=== PATIENT | female | born 1990 | race Hispanic/Latino ===

== ENCOUNTER 2019-09-18 13:16 | Inpatient (IN) | payer SELFPAY ==
[2019-09-18] MEDS ORDERED: cefTRIAXone\\ROCEPHIN 2 GM VIAL ONE ×2 (13:55→14:04)
[2019-09-18 14:04] LABS: #Lymphocytes 1.4 thou/uL (1.20-3.40); #Monocytes 1.1 thou/uL (0.11-0.59); #Neutrophils 6.7 thou/uL (1.40-6.50); %Basophils 0.2 % (0.0-1.0); %Eosinophils 0.1 % (0.0-10.0); %Lymphocytes 15.2 % (21.0-51.0); %Neutrophils 72.5 % (42.0-75.0); Hemoglobin 11.4 g/dL (12.0-16.0); Mean Corpuscular HGB CONC 33.9 g/dL (32.0-36.0); Mean Corpuscular Hemoglobin 28.8 pg (27.0-31.0); Mean Platelet Volume 9.3 fL (7.4-10.4); Platelet Count 199 thou/uL (130-400); RBC Distribution Width 16.5 % (11.5-14.5); Red Blood Cell (RBC) Count 3.95 mill/uL (4.20-5.40); White Blood Cell (WBC) Count 9.3 thou/uL (4.8-10.8)
[2019-09-18 14:14] LABS: BHCG - Serum Negative (NEGATIVE); Pregs Control Background? CLEAR/WHITE (CLR/WHITE); Pregs Control Bar Appear? YES (CONTROL BAR)
[2019-09-18 14:27] LABS: ALT (SGPT) 50 U/L (8-55); AST (SGOT) 34 U/L (5-34); Albumin 3.9 g/dL (3.5-5.0); Alkaline Phosphatase 114 U/L (40-110); Anion Gap 12 mmol/L (10-20); BUN (Urea Nitrogen) 6 mg/dL (7.0-18.7); Bilirubin, Total 0.7 mg/dL (0.2-1.2); Calc. Creatinine Clearance 0 mL/min (70-130); Calcium 8.6 mg/dL (7.8-10.44); Carbon Dioxide 23 mmol/L (22-29); Chloride 102 mmol/L (98-107); Estimated GFR-MDRD Greater than 90; Globulin 3.9 g/dL (2.4-3.5); Glucose 94 mg/dL (70-105); Lipase 15 U/L (8-78); Potassium 3.7 mmol/L (3.5-5.1); Protein, Total 7.8 g/dL (6.0-8.3); Sodium 133 mmol/L (136-145)
[2019-09-18] MEDS ORDERED: Succinylcholine Chloride 20 MG/ML 10 ml SYRINGE FS ONE (14:49)
[2019-09-18] MEDS ORDERED: PROPOFOL 200 MG/20 ML VIAL ONE (14:49)
[2019-09-18] MEDS ORDERED: Ondansetron PF 4 MG/2 ML Vial ONE ×2 (14:49→19:07)
[2019-09-18] MEDS ORDERED: Dexamethasone 20 MG/5 ML VIAL ONE (14:49)
[2019-09-18] MEDS ORDERED: PHENYLEPHRINE-NS 100 MCG/ML 10 ML SYRINGE ONE (14:49)
[2019-09-18] MEDS ORDERED: Lidocaine 1% PF 5 ML VIAL ONE (14:49)
[2019-09-18 14:57] LABS: Bilirubin Negative (Negative); Blood, Urine Negative (Negative); Clarity Turbid (Clear); Glucose, Urine (Dipstick) 30 mg/dL (Negative); Leukocyte 500 Leu/uL (Negative); Nitrite Negative (Negative); Protein, Urine (Dipstick) 50 mg/dL (Neg-Trace); WBC/HPF 21-50 HPF (0-3)
[2019-09-18 15:08] LABS: Bacteria/HPF 2+ HPF (None Seen); Trichomonas/HPF 1+ HPF (None Seen)
[2019-09-18] MEDS ORDERED: Iopamidol-370 76% 500 ML 1 ML ONE (15:27)
[2019-09-18] MEDS ORDERED: Ketorolac Tromethamine 30 MG/ML VIAL ONE ×2 (15:33→20:06)
[2019-09-18] MEDS ORDERED: metroNIDAZOLE 250 MG TAB ONE ×2 (16:11→16:33)
--- NOTE | 2019-09-18 16:30 | CT ---
CT abdomen and pelvis with IV contrast HISTORY: Abdomen pain. Fever. FINDINGS: Lung bases are clear. The liver, spleen, kidneys, adrenal glands, and pancreas have a litzy l CT appearance. Tiny hyperdensity at the inferior pole of the right kidney correlate with contrast within a vessel rather than a stone. Reactive appearing lymph nodes throughout the retroperitoneum an d mesentery. Urinary bladder is unremarkable. Appendix is upper limits of normal in caliber is 0.6 cm. Some internal fluid. Minimal hyperenhancement of the wall and adjacent fat stranding. IMPRESSION: Early inflammatory appearance of the appendix. Consider early acute appendicitis. No evid ence of complication.
[2019-09-18] MEDS ORDERED: Piperacillin/Tazobactam 3.375 GM VIAL ONE (17:27)
[2019-09-18] MEDS ORDERED: Bupivacaine PF 0.5% 30 ML VIAL ONE (17:28)
[2019-09-18] MEDS ORDERED: Lidocaine 1% w/Epinephrine 1:100K 20 ML VIAL ONE (17:28)
[2019-09-18] MEDS ORDERED: Fentanyl 100 MCG/2 ML VIAL ONE ×2 (17:41→19:19)
--- NOTE | 2019-09-18 17:48 | HP ---
HISTORY OF PRESENT ILLNESS: Funmi Farris is a 29-year-old female, has had 3 days of general body aches, left hip pain, lower back pain, dysuria, abdominal pain, nausea, vomiting, fever. She presents to the emergency room, evaluated, and noted to have a white count of 9 and hemoglobin of 11, unremarkable comprehensive metabolic profile. Urinalysis suggestive of UTI with 2+ bacteria, 1+ Trichomonas, specific gravity 1.023, turbid urine, nitrite negative. She underwent a CAT scan of the abdomen and pelvis evaluated for abdominal complaints, noted to have changes consistent with early appendicitis. She is noted to be tender in right lower quadrant. ALLERGIES: NONE. TOBACCO: None. ALCOHOL: Rarely. MEDICATIONS: None routinely. PAST SURGICAL HISTORY: Noncontributory. PAST MEDICAL HISTORY: Noncontributory. SOCIAL HISTORY: Patient has 4 children. 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 PHYSICAL EXAMINATION: VITAL SIGNS: Blood pressure 120/70, heart rate 68, respiratory rate 18. HEAD EARS, EYES, NOSE AND THROAT: Unremarkable. LUNGS: Clear to auscultation. CARDIAC: Regular rate and rhythm without murmur or gallop. ABDOMEN: Soft. Tenderness in the lower abdomen with mild guarding. EXTREMITIES: Unremarkable. ASSESSMENT AND PLAN: 1. Appendicitis. We recommend laparoscopic video appendectomy. Risks of infection, bleeding, reoperation explained and she consents. 2. Flu-like symptoms. Hydrate. 3. Dehydration. 4. Possible urinary tract infection. Job ID: [id number]
[2019-09-18] MEDS ORDERED: Meperidine HCl/PF 25 MG/ML VIAL SLOW IVP PRN (18:02)
[2019-09-18] MEDS ORDERED: Promethazine HCl 25 MG/ML VIAL SLOW IVP PRN (18:02)
[2019-09-18] MEDS ORDERED: Ondansetron HCl/PF 4 MG/2 ML Vial IVP PRN (18:02)
[2019-09-18] MEDS ORDERED: HYDROmorphone 2 MG/ML VIAL SLOW IVP PRN (18:02)
[2019-09-18] MEDS ORDERED: Morphine Sulfate 2 MG/ML SYRINGE SLOW IVP PRN (18:02)
[2019-09-18] MEDS ORDERED: Ketorolac Tromethamine 30 MG/ML VIAL IVP PRN (18:02)
[2019-09-18] MEDS ORDERED: PACU-Morphine 4MG/ML VIAL SLOW IVP PRN (18:02)
[2019-09-18] MEDS ORDERED: Promethazine HCl 25 MG/ML VIAL IM PRN (18:02)
[2019-09-18] MEDS ORDERED: Ondansetron ODT 4 MG TAB PO PRN (18:33)
[2019-09-18] MEDS ORDERED: Ondansetron PF 4 MG/2 ML Vial IVP PRN (18:33)
[2019-09-18] MEDS ORDERED: hydrALAZINE 20 MG/ML VIAL SLOW IVP PRN (18:33)
[2019-09-18] MEDS ORDERED: Morphine 4 MG/ML VIAL SLOW IVP PRN (18:33)
[2019-09-18] MEDS ORDERED: Morphine 2 MG/ML SYRINGE SLOW IVP PRN (18:33)
[2019-09-18] MEDS ORDERED: traMADol HCl 50 MG TAB PO PRN (18:35)
[2019-09-18] MEDS ORDERED: SUGAMMADEX SODIUM 200 MG/2 ML VIAL ONE (18:51)
[2019-09-18] MEDS ORDERED: Promethazine HCl 25 MG/ML VIAL ONE (19:44)
[2019-09-18] MEDS: traMADol HCl 50 MG TAB PO PRN (21:35)
[2019-09-18] MEDS: Famotidine 20 MG TAB PO SCH (21:35)
[2019-09-18] MEDS: Acetaminophen 500 MG TAB PO PRN (21:36)
[2019-09-18] MEDS: metroNIDAZOLE 500 MG TAB PO SCH (21:36)
[2019-09-18] MEDS: Ibuprofen 600 MG TAB PO PRN (21:36)
[2019-09-18] MEDS: Enoxaparin Sodium 40 MG/0.4 ML SYRINGE SC SCH (21:36)
[2019-09-18] MEDS: Sodium Chloride 0.9% 1,000 ML IV SCH (21:39)
[2019-09-18 22:39] VITALS: BMI 32.7
--- NOTE | 2019-09-19 01:09 | OP ---
DATE OF PROCEDURE: 09/18/2019 PREOPERATIVE DIAGNOSES: Acute appendicitis, flu-like symptoms, urinary tract infection, CAT scan states appendicitis. POSTOPERATIVE DIAGNOSIS: Normal appendix. PROCEDURE PERFORMED: Laparoscopic video appendectomy, unremarkable. ANESTHESIA: General, local 0.5% Marcaine 30 mL mixed with 1% Xylocaine with epinephrine 20 mL. DESCRIPTION OF PROCEDURE: The patient was taken to the operating room where under general anesthesia, abdomen was prepared with ChloraPrep and draped in routine fashion. A An catheter was placed at the beginning of the procedure and removed at the end. Local anesthetic was infiltrated into the skin and subcutaneous tissue about the operative sites. Infraumbilical incision was made. Pneumoperitoneum to 15 mmHg was obtained. A Veress needle, replaced with 5 port laparoscope inserted. Right lateral subcostal incision was made and a 5 port placed. Suprapubic incision was made and a 12 port placed. Appendix appeared to be normal. Mesoappendix was taken down with the LigaSure. Stump of the appendix divided with Endo-GRISELDA blue load stapler. Stapled cecal stump was hemostatic and secured. The appendix was removed and submitted to Pathology. Good hemostasis was ensured. Irrigant and pneumoperitoneum evacuated. Suprapubic fascia was approximated with 0 Vicryl. All skin incisions were approximated with interrupted subdermal 4-0 Monocryl and [place] glue applied. Job ID: [id number]
[2019-09-19] MEDS: Sodium Chloride 0.9% 1,000 ML IV SCH ×3 (05:45→11:41)
[2019-09-19] MEDS: traMADol HCl 50 MG TAB PO PRN ×2 (05:53→15:49)
[2019-09-19 06:00] LABS: #Lymphocytes 0.6 thou/uL (1.20-3.40); #Monocytes 0.4 thou/uL (0.11-0.59); #Neutrophils 7.5 thou/uL (1.40-6.50); %Eosinophils 0.1 % (0.0-10.0); %Monocytes 4.3 % (0.0-10.0); %Neutrophils 88.6 % (42.0-75.0); Hemoglobin 10.6 g/dL (12.0-16.0); Mean Corpuscular HGB CONC 31.9 g/dL (32.0-36.0); Mean Corpuscular Hemoglobin 27.7 pg (27.0-31.0); Mean Platelet Volume 9.5 fL (7.4-10.4); Platelet Count 171 thou/uL (130-400); RBC Distribution Width 16.4 % (11.5-14.5); Red Blood Cell (RBC) Count 3.82 mill/uL (4.20-5.40); White Blood Cell (WBC) Count 8.5 thou/uL (4.8-10.8)
[2019-09-19 06:25] LABS: Anion Gap 11 mmol/L (10-20); BUN (Urea Nitrogen) 5 mg/dL (7.0-18.7); Calc. Creatinine Clearance 205 mL/min (70-130); Calcium 8.1 mg/dL (7.8-10.44); Carbon Dioxide 21 mmol/L (22-29); Chloride 110 mmol/L (98-107); Estimated GFR-MDRD Greater than 90; Glucose 121 mg/dL (70-105); Potassium 4.2 mmol/L (3.5-5.1); Sodium 138 mmol/L (136-145)
[2019-09-19] MEDS ORDERED: FLU VACC QS2019-20(6MOS UP)/PF 60 MCG/0.5 ML SYRINGE IM ONE (09:00)
[2019-09-19] MEDS: Famotidine 20 MG TAB PO SCH ×2 (09:25→21:22)
[2019-09-19] MEDS: metroNIDAZOLE 500 MG TAB PO SCH ×3 (09:25→21:22)
[2019-09-19] MEDS: Acetaminophen 500 MG TAB PO PRN ×2 (11:40→21:22)
[2019-09-19] MEDS: Ibuprofen 600 MG TAB PO PRN ×2 (15:49→21:22)
--- NOTE | 2019-09-19 17:05 | PRG ---
DATE OF SERVICE: SUBJECTIVE: Funmi Farris is one day status post laparoscopic appendectomy. The findings at surgery appeared to be that of a normal appendix despite CAT scan showing evidence of inflammation and fluid. She has been afebrile at 98 degrees, heart rate 76, and blood pressure 94/60. White count 8 and hemoglobin 10. Basic metabolic profile normal. Urine cultures negative, although did grow Trichomonas. The patient has refused to cooperate with walking team, 3 efforts today. She does not want to get out of bed. She has made one effort to walk to the bathroom, but felt dizzy. She has been hydrated overnight and appears to be adequately hydrated. OBJECTIVE: LUNGS: Clear to auscultation. CARDIAC: Regular rate and rhythm without murmur or gallop. ABDOMEN: Postoperative tenderness, otherwise nontender. Trocar sites look good. Wounds okay. While visiting the patient, I encouraged her that she should be up in the chair and walking. While in the room, I asked her if I could help her sit up on the side of the bed, she agreed. I removed her SCD connections and then proceeded to move her side of the bed holding her hand, helping her raise forward. Her became irate. He accused me of hurting his . The then was upset that we had taken out a normal appendix and his was still hurting. Her then accused me of treating them poorly because they did not have insurance. I told him I did not know their insurance status. He then accused me of treating them different because they were black and said that he would bring a white person in here to deal with me. I then told the patient I would have to return later to talk to him after he calmed down. I left the room and then the patient's nurse told me that the patient and her decided they wanted to go home. I returned to the room again and discussed with him the patient's presentation in the emergency room, how the emergency room doctor had seen her, how her symptoms were atypical for appendicitis yet the CAT scan suggested appendicitis and she underwent the operation with apparent normal-looking appendix. I told him about her Trichomonas in the bladder and that her urinary culture was otherwise negative, but yet they would both need to be treated with Flagyl for 2 weeks. I have written a prescription for both of them. I then gave him the option of staying in the hospital or going home, stating that there is nothing we can do to treat her viral illness to make it resolve quicker and that would pass with time. I have told him that we could keep her in the hospital another day. He then wanted to see if they could work toward getting her pain under better control and discuss with her nurse the pain control efforts. We will try Tylenol and Advil together, use tramadol as necessary, and use Tylenol No. 3 and hydrocodone only if necessary. The patient and her are agreeable and await their decision later today, otherwise see them tomorrow. Hopefully, she will be ready and feeling better for discharge tomorrow. Job ID: [id number]
[2019-09-19] MEDS: Enoxaparin Sodium 40 MG/0.4 ML SYRINGE SC SCH (21:22)
[2019-09-20] MEDS: traMADol HCl 50 MG TAB PO PRN (06:07)
[2019-09-20] MEDS: Acetaminophen 500 MG TAB PO PRN (06:08)
[2019-09-20] MEDS: metroNIDAZOLE 500 MG TAB PO SCH ×2 (09:06→14:16)
[2019-09-20] MEDS: Famotidine 20 MG TAB PO SCH (09:06)
[2019-09-20 11:08] VITALS: BP 106/61; TEMP 97.9
[2019-09-20] MEDS ORDERED: Acetaminophen/Codeine 30-300mg Tablet PO PRN ×2 (13:37)
[2019-09-20 14:09] LABS: Chlamydia by PCR DETECTED (NotDetected); GC by PCR Not Detected (NotDetected)
--- NOTE | 2019-09-20 14:40 | PRG ---
DATE OF SERVICE: 09/20/2019 SUBJECTIVE: Brittani Farris feels much better. She still has some lower back pain, left hip pain. She states she has had low back pain in the past. She has been treated for muscle spasm in the past. She is tolerating her diet. Her abdomen is without complaint. She complains of some pain in the lower trocar incision. I have reminded her this is the only place, where there is a scar and has a typical complaint and this will resolve over time. Her laparoscopic complaints have resolved, although she has persistent left hip pain and lower back pain, which she has had in the past. We have talked about treating that with Tylenol and ibuprofen [id number] and Ultram has not been as effective for her, if she would like, and we gave her prescription for Tylenol No. 3 to go home. OBJECTIVE: LUNGS: Clear to auscultation. CARDIAC: Regular rate and rhythm. No murmur or gallop. ABDOMEN: Soft, nontender. Laparoscopic wounds well healed. VITAL SIGNS: Temperature 97.9 degrees, heart rate 85, blood pressure 106/61. GENERAL: The patient is ambulating without difficulty. She is weightbearing on the left without difficulty. LABORATORY DATA: None today. ASSESSMENT: 1. Flu-like illness. 2. Laparoscopic appendectomy for probably a false-positive CAT scan with a normal-appearing appendix on laparoscopy. Await pathology. PLAN: Discharge home with followup in 2 to 3 weeks. Diet and activity as tolerated. Job ID: [id number]
--- NOTE | 2019-09-21 04:05 | DIS ---
DATE OF ADMISSION: 09/18/2019 DATE OF DISCHARGE: 09/20/2019 DISCHARGE DIAGNOSES: 1. Abdominal pain, flu-like viral illness. 2. False-positive CAT scan, pathology pending, grossly normal appendix. At laparoscopy, laparoscopic appendectomy undertaken. 3. Positive Trichomonas. Urinalysis negative UTI, has been sent home with Flagyl for 2 weeks. HISTORY: This is a 29-year-old female presenting with 3 day illness, body aches, muscle aches, back pain, had tenderness on exam. Abdomen, underwent a CAT scan suggesting appendicitis although early. The patient and counseled as to our recommendation as far as appendectomy, but realizing her main complaints are viral and this may not relieve all of her complaints, underwent laparoscopic video appendectomy. Postoperatively, continued to have problems and kept an extra 2 days. She was feeling good on the day of discharge. She was complaining of persistent left hip pain and to a lesser degree lower back pain. She has a history of past lower back pain. She is weightbearing, ambulating without problem. She is tolerating her diet. She is sent home with Flagyl for 2 weeks. Trichomonas positive urine. She was sent home with Tylenol No.3 p.r.n. pain as Ultram did not alleviate her pain. She was advised to take Tylenol and Advil when able. She will follow up in my office in 2 to 3 weeks or sooner as needed. Job ID: [id number]
--- NOTE | 2019-09-22 22:27 | PQF ---
ARMINDA GARBER RICHARD D MD [id number] CLINICAL DOCUMENTATION CLARIFICATION FORM: POST DISCHARGE Addendum to original discharge summary date: ____ Late entry note date: __ DATE: 09/22/18 ATTN: Geoffrey Palacios Please exercise your independent, professional judgment in responding to the clarification form. Clinical indicators are provided on the bottom of this form for your review Can you please further clarify if Sepsis is ruled in or ruled out? Sepsis [ ] Ruled in diagnosis [ ] Continue to treat [ ] Resolved [ ] Ruled out diagnosis [ ] Cannot rule out diagnosis [ ] Other diagnosis [ ] Unable to determine In addition, please specify: Present on Admission (POA): [ ] Yes [ ] No [ ] Unable to determine For continuity of documentation, please document condition throughout progress notes and discharge summary. Thank You. CLINICAL INDICATORS - SIGNS / SYMPTOMS / LABS ED Provide pg.3- Sepsis H and P pg.1- rinalysis suggestive of UTI H and P pg.1- abdominal pain, nausea, vomiting, fever DS pg.1- abdominal pain, flu like viral illness RISK FACTORS Dehydration- H and P pg.1 Appendicitis- H and P pg.1 Positive Trichomonas Viral illness- DS pg.1 TREATMENTS Flagyl- DS pg.1 IV Fluids- MAR Urine Culture- Microbiology CT abdomen/Pelvis 09/18 (This form is maintained as a part of the permanent medical record) 2014 [employer] All Rights Reserved [email or web address] [not [email or web address]] [email or web address]
== END 2019-09-20 15:03 | disposition home or self-care (01) | DRG 855 ==
LOC: EDBD 13:16 → ERS 13:16 → SDC/OP 18:20 → SURG B 20:53
PROVIDERS: ADMIT Specialist; ATTEND Specialist
PROC: 0DTJ4ZZ Resection of Appendix, Percutaneous Endoscopic Approach (ICD-10-PCS; principal; 2019-09-18)
DX: B34.9 Viral infection, unspecified (principal); A59.03 Trichomonal cystitis and urethritis; E86.0 Dehydration; J45.909 Unspecified asthma, uncomplicated; D64.9 Anemia, unspecified; F32.9 Major depressive disorder, single episode, unspecified
CPT/HCPCS: 36415; 74177; 80048; 80053; 81003; 81015; 83605; 83690; 84703; 85025; 87040; 87086; 87480; 87491; 87510; 87591; 87660; 88304; 96361; 96365; 96366; 96367; 96375; J0696; J1100; J1650; J1885; J1956; J2001; J2405; J2543; J2550; J2704; J3010; Q9967; S0020

== ENCOUNTER 2020-12-03 19:59 | Emergency (ER) | payer OTHER, SELFPAY ==
[~2020-12-03 19:59] MED LIST: Iopamidol-370 76% 500 ML 1 ML ONE
[2020-12-03 20:27] LABS: #Eosinphils 0.1 thou/uL (0.0-0.7); #Lymphocytes 1.8 thou/uL (1.20-3.40); #Monocytes 0.5 thou/uL (0.11-0.59); #Neutrophils 4.3 thou/uL (1.40-6.50); %Basophils 0.4 % (0.0-1.0); %Eosinophils 1.2 % (0.0-10.0); %Lymphocytes 26.6 % (21.0-51.0); %Monocytes 7.6 % (0.0-10.0); %Neutrophils 64.1 % (42.0-75.0); Mean Corpuscular HGB CONC 34.4 g/dL (32.0-36.0); Mean Corpuscular Hemoglobin 31.5 pg (27.0-31.0); Mean Corpuscular Volume 91.7 fL (78.0-98.0); Mean Platelet Volume 8.7 fL (7.4-10.4); Platelet Count 233 thou/uL (130-400); RBC Distribution Width 14.3 % (11.5-14.5); White Blood Cell (WBC) Count 6.7 thou/uL (4.8-10.8)
[2020-12-03 20:40] LABS: BHCG - Serum Negative (NEGATIVE); Pregs Control Background? CLEAR/WHITE (CLR/WHITE); Pregs Control Bar Appear? YES (CONTROL BAR)
[2020-12-03 20:48] LABS: ALT (SGPT) 63 U/L (8-55); AST (SGOT) 39 U/L (5-34); Albumin 3.8 g/dL (3.5-5.0); Alcohol 41 mg/dL (Less than 10); Alkaline Phosphatase 95 U/L (40-110); Anion Gap 16 mmol/L (10-20); BUN (Urea Nitrogen) 6 mg/dL (7.0-18.7); Bilirubin, Total 0.3 mg/dL (0.2-1.2); Calc. Creatinine Clearance 0 mL/min (70-130); Calcium 8.3 mg/dL (7.8-10.44); Carbon Dioxide 18 mmol/L (22-29); Chloride 110 mmol/L (98-107); Globulin 3.5 g/dL (2.4-3.5); Glucose 90 mg/dL (70-105); Potassium 3.6 mmol/L (3.5-5.1); Protein, Total 7.3 g/dL (6.0-8.3); Sodium 140 mmol/L (136-145)
== END 2020-12-03 22:06 | disposition home or self-care (01) ==
LOC: ERS 19:59
DX: S40.811A Abrasion of right upper arm, initial encounter (principal); S50.311A Abrasion of right elbow, initial encounter; S43.439A Superior glenoid labrum lesion of unspecified shoulder, initial encounter; E88.89 Other specified metabolic disorders; J45.909 Unspecified asthma, uncomplicated; D64.9 Anemia, unspecified; V89.2XXA Person injured in unspecified motor-vehicle accident, traffic, initial encounter
CPT/HCPCS: 70450; 71260; 72125; 74177; 80053; 80307; 84703; 85025; G0390; Q9967